=== PATIENT | male | born 1990 | race African-American/Black ===

== ENCOUNTER 2020-03-31 07:43 | Day surgery (SDC) | payer OTHER ==
[~2020-03-31] VITALS: Ht 185.4 cm; Wt 83.0 kg
[~2020-03-31 07:43] MED LIST: CYCLOBENZAPRINE10 MG PO; MELOXICAM15 MG PO; PROZAC20 M1 PO
[2020-03-31 08:32] VITALS: BP 123/84
[2020-03-31] MEDS ORDERED: PERCOCET 7.5-31 EAC1 PO (10:14)
[2020-03-31 11:02] VITALS: BP 123/84
--- NOTE | 2020-04-01 09:47 | O ---
[facility] [place] [address] OPERATIVE REPORT Name: DELMY BUTCHER Room #: DEP [facility]#: [id number] Admission: 03/31/20 Attend Phys: Humberto Wharton MD Discharge: 03/31/20 Date of : 89 Report #: [id number] THIS REPORT FOR: cc: CANDIDA JIMENEZ - Family physician unknown Humberto Wharton MD ~ CC: VIVIAN unknown CANDIDA Wharton DATE OF SERVICE: 03/31/2020 PREOPERATIVE DIAGNOSES: Left hallux valgus. POSTOPERATIVE DIAGNOSES: Left hallux valgus. PROCEDURES: 1. Left foot Lapidus procedure. 2. Modified Hernandez procedure, left foot. 3. Left foot Enrico osteotomy. SURGEON: Dr. Humberto Wharton. SHAREPOINT WEB DEVELOPER: Tamera Gonzalez. ANESTHESIA: General. ESTIMATED BLOOD LOSS: Minimal. DRAINS: No drains. TOURNIQUET TIME: 90 minutes. DESCRIPTION OF PROCEDURE: The patient was brought to the operating room where he was placed under general anesthesia. Once under adequate general anesthesia, his left lower extremity was prepped and draped in sterile manner. The extremity was elevated, exsanguinated, tourniquet placed at 300 mmHg. A dorsal incision over the first TMT joint was then made. This was dissected down through soft tissue to the tarsometatarsal joint. This was then freed from any surrounding soft tissue and the joint was freed utilizing a 15 blade, a sagittal saw and an osteotome. This did allow rotational reduction of the deformity. Subsequent to this, a small stab incision over the second metatarsal was made and the C-clamp was then placed and the pin placed across the first and second metatarsal to hold this in place. The joint seeker was utilized to place the cutting block and the cutting block was then used to perform the cut about the first TMT joint. Once complete, the bony fragments were removed with an [facility] [address] [place] [address] OPERATIVE REPORT Name: DELMY BUTCHER Room #: DEP [facility] M.R.#: [id number] Admission: 03/31/20 Attend Phys: Humberto Wharton MD Discharge: 03/31/20 Date of : 89 Report #: [id number] osteotome and a rongeur. Once removed, the joint was fenestrated and then subsequently with a drill to get bleeding bone and subsequently, the first TMT joint was reduced for fixation with a dorsal and medial plate from the Lapiplasty set. Excellent fixation and alignment was achieved as verified under fluoroscopy. A dorsal incision in the first webspace was made. Dissection carried down to the lateral joint, which was then released along with the sesamoids. Medially, an incision over the medial eminence was made. That was done prior to fixation of the fusion. A medial incision was made over the metatarsophalangeal joint extending to the proximal phalanx of the great toe and the base of the proximal phalanx of the great toe was then exposed and a medial closing wedge osteotomy was performed with fixation across this with a 26 mm cannulated screw placed under fluoroscopic guidance. Excellent fixation and alignment was achieved as verified under fluoroscopy completing the Enrico procedure. The medial eminence was exposed and a sagittal saw was used to resect this. A 2-0 Ethibond suture was utilized to repair the medial capsular layer in a shortened position. Excellent fixation and alignment as verified under fluoroscopy was complete for the Enrico and the TMT fusion. The wounds were irrigated copiously and closed with 3-0 Vicryl in subcutaneous tissues and 3-0 nylon for the skin. Wounds were dressed with Xeroform, 4 x 4s, and sterile soft compressive dressing was placed. Tourniquet was let down at approximately 90 minutes. Toes were pink and warm with good capillary refill. There were no complications from the procedure. The patient tolerated the procedure well and was taken to recovery room without incident. <ELECTRONICALLY SIGNED> By: Humberto Wharton MD 04/01/20 0947 [id number] Humberto Wharton MD /nt
== END 2020-03-31 12:20 | disposition home or self-care (01) ==
LOC: OR 07:43 → TBA 07:44 → OR 11:24
PROVIDERS: ATTEND Orthopaedic Surgery Foot and Ankle Surgery
DX: M20.12 Hallux valgus (acquired), left foot (principal); M25.572 Pain in left ankle and joints of left foot; J45.909 Unspecified asthma, uncomplicated; F32.9 Major depressive disorder, single episode, unspecified; Z98.890 Other specified postprocedural states; Z79.899 Other long term (current) drug therapy
CPT/HCPCS: 50010; 50101; 50386; 50951; 51412; 56524; 56526; 57091; 57180; 57910; 57911; 62110; 62900; 70005